=== PATIENT | male | born 1955 | race Caucasian/White ===

== ENCOUNTER 2017-10-12 14:50 | Inpatient (IN) ==
[2017-10-12] MEDS ORDERED: Acetaminophen 325 MG TABLET PO PRN (20:59)
[2017-10-12] MEDS ORDERED: Naloxone 0.4 MG/ML INJ IVP PRN (20:59)
--- NOTE | 2017-10-12 21:34 | Internal Med History&Physical ---
Date of Encounter: 10/12/17 Time of Encounter: 19:30 Internal Medicine - H&P: HPI Chief complaint: Left-sided weakness Admitted From: Home Plans for Post Hospital Care: Home History of present illness: Mr. Lamb is a 62 year old male transferred from [place] emergency room. Patient present to ER for left sided weakness and slurred speech. Patient is generally in good health, no significant past medical history. He is on no home medication. Patient said since Monday (3 days ago) he started to have left arm and left leg weakness, without numbness or pain. Patient also has on and off slurred speech. Patient denies difficulty swallowing, choking or cough on eating. Patient denies headache, shortness of breath, or chest pain. 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 Patient was transferred to our hospital for further management. I have discussed with this patient regarding CODE STATUS, patient clearly told me he does not want resuscitation or intubation, DNR/DNI placed. Past Med Surg Social Fam HX - Past Medical History Medical history: no medical history Psychiatric history: no psych history - Past Surgical History Surgical History: appendectomy - Social History Smoking Status: Former smoker Smokeless Tobacco Status: No Alcohol use: none Drug use: none - Family History Mother History Unknown: Yes Internal Medicine - H&P: Meds No Known Home Drugs 10/12/17 [History] 3 Allergy/AdvReac Type Severity Reaction Status Date / Time bee venom protein (honey bee) Allergy Swelling Verified 10/12/17 11:48 of Lip/Tongue/Throat Silicone AdvReac Mild See Verified 10/12/17 11:47 Comments All Systems PM: A 10-system review of systems was performed and is negative for pertinent findings except as documented above in the HPI. - Constitutional Vitals: Temp Pulse Resp BP Pulse Ox 98.9 F 60 14 113/67 96 10/12/17 17:45 10/12/17 17:47 10/12/17 17:47 10/12/17 17:47 10/12/17 17:47 General appearance: Present: A&O X 3, no acute distress, answers questions appropriately - Head Head exam: Present: atraumatic, normocephalic - Eye Eye exam: Present: PERRL, conjuntiva pink, sclera anicteric Pupils: Present: PERRL - Neck Neck exam general surgery: Present: supple, trachea midline. Absent: lymphadenopathy - Respiratory Respiratory exam: Present: CTAB. Absent: accessory muscle use, rales, rhonchi, wheezes - Cardiovascular Cardiovascular exam: Present: RRR, +S1, +S2. Absent: diastolic murmur, gallop, rubs, systolic murmur - GI/Abdominal GI/Abdominal exam: Present: normal bowel sounds, soft, no peritoneal signs. Absent: distended, tenderness - Extremities Exam Extremities exam: Present: warm, radial pulses palpable and symmetrical. Absent : calf tenderness, cyanotic, pedal edema - Neurological Exam Neurological exam: Present: motor sensory deficit (Left UE/LE motor 5-/5. ), oriented X3, no focal deficits, facial droop (Left-sided facial drop). Absent: CN II-XII intact (Tongue diviate to left side when sticking out.), pronater drift, speech deficit - Skin Skin exam: Present: dry, intact - Assessment and plan (1) DVT prophylaxis Current Visit: Yes Status: Acute Assessment and plan: Heparin subcutaneously (2) CVA (cerebral vascular accident) Current Visit: No Status: Acute Assessment and plan: Patient has left side weakness with slurred speech and left-sided facial drop. CTA shows Pontine infarct. Symptoms started from 3 days ago. Consider ischemic CVA. - Placing patient on continuous cardiac monitoring - Echocardiogram and duplex carotid bilaterally - Neurology consult - [facility] SS protocol - PTOT evaluation - Patient has no problem with swallowing, will place patient on regular diet. - We will start aspirin and atorvastatin. Qualifiers: CVA mechanism: unspecified Qualified Code(s): I63.9 - Cerebral infarction, unspecified (3) Hyperglycemia Current Visit: Yes Status: Acute Assessment and plan: Patient's random glucose level is high in [facility] emergency room (289). Patient denies history of diabetes. Will check hemoglobin A1c in a.m. - Time Spent With Patient Total time spent is greater than 50% in coordination of care (as documented) at patient's floor/unit and/or counseling patient: 40 minutes Greater than 35 minutes
[2017-10-12] MEDS: Aspirin Enteric Coated 81 MG Tablet PO SCH (21:53)
[2017-10-13 05:26] LABS: Basophils # 0.1 K/mcL (0.0-0.2); Basophils % 0.8 %; Eosinophils # 0.3 K/mcL (0.0-0.6); Eosinophils % 3.2 %; Hemoglobin 13.8 g/dL (12.9-16.9); Immature Granulocytes % 0.3 % (0-4); Lymphocytes % 35.2 %; Mean Corpuscular HGB Conc 35.4 g/dL (31.6-35.5); Mean Corpuscular Hemoglobin 31.1 pg (28.0-33.3); Mean Corpuscular Volume 87.8 fL (83.0-100.0); Monocytes # 0.8 K/mcL (0.0-1.3); Monocytes % 9.4 %; Neutrophils # 4.4 K/mcL (1.6-8.9); Platelet Count 206 K/mcL (140-400); Red Blood Count 4.44 M/mcL (4.19-5.50); Red Cell Distribution Width 13.1 % (11.5-14.5); Segmented Neutrophils % 51.1 %
[2017-10-13 05:49] LABS: BUN/Creatinine Ratio 22 (6-26); Blood Urea Nitrogen 14 mg/dL (8-23); Carbon Dioxide 27 mEq/L (23-29); Chloride 103 mEq/L (98-107); Chol/HDL Ratio 6.3 (0-4.9); Cholesterol 170 mg/dL (< 200); Glucose 236 mg/dL (70-105); HDL Cholesterol 27 mg/dL (40-59); LDL Cholesterol,Calculated 89 mg/dL (0-99); Magnesium 1.9 mg/dL (1.6-2.6); Osmolality,Calculated 290 (280-300); Potassium 3.5 mEq/L (3.5-5.1); Sodium 136 mEq/L (136-145); Triglycerides 271 mg/dL (< 150); eGFR For African Americans > 60 (> 60); eGFR For Non-African Americans > 60 (> 60)
[2017-10-13] MEDS: *HR* Heparin 5,000 UNIT/ML VIAL SQ SCH ×2 (06:10→17:49)
[2017-10-13 08:39] LABS: Estimated Average Glucose 269 mg/dl
[2017-10-13] MEDS: Aspirin Enteric Coated 81 MG Tablet PO SCH (08:46)
--- NOTE | 2017-10-13 10:45 | Neurology - Consult Note ---
Date of Encounter: 10/13/17 Time of Encounter: 07:25 Assessment and Plan (1) Left-sided weakness Current Visit: Yes Status: Acute Agent who did not have any significant past medical history admitted with 3 days history of left-sided weakness which is very mild able to ambulate without any problem no other cranial nerve dysfunction were noted on current neurological examination AT facility CT scan of the head shows concern of a pontine infarct. Patient would need a stroke workup including MRI of the brain at the same time suggest to continue him on antiplatelet therapy with aspirin also check his cholesterol may benefit from statin For secondary stroke prevention patient should continue daily antiplatelet medication and vascular risk factor modification. Order the following test, *MRI of the brain without contrast. *Antiplatelet medication, aspirin 325 mg daily. *Consult physical therapy/ though don not think that he need any rehab * To reduce the risk of future ischemic stroke patient need continued vascular risk modification, following's are the recommended guidelines LDL goal less than 70 MG per deciliter Smoking cessation reinforced. Diabetes management Blood pressure control should achieve less than 130/80 mmHg BP management should aim to achieve long-term control in a reasonable amount of time. weight management goal for BMI is 18.5 -24.9 Kg/m2 Alcohol : No more than 2 drinks per day for men Patient to continue to follow-up with his primary care physician for continued outpatient risk factor management and modification. History of Present Illness HPI: Mr. Lamb is a 62 year old male Mr. Lamb is a 62 year old male transferred from [place] emergency room. Patient present to ER for left sided weakness that started about 3 days ago she did not pay much attention to it his symptoms continued so finally he came into the emergency room to be evaluated. He may have some slurred speech but he is not sure about it he denies any headache denies any double vision denies any difficulty with swallowing or any difficulty with a gait and balance. Patient is generally in good health, no significant past medical history. He is on no home medication. patient denies headache, shortness of breath, or chest pain. 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 Patient was transferred to [facility] for further management. Past Med Surg Social Fam HX - Past Medical History Medical history: no medical history Psychiatric history: no psych history - Past Surgical History Surgical History: appendectomy - Social History Smoking Status: Former smoker Smokeless Tobacco Status: No Alcohol use: none Drug use: none - Family History Mother History Unknown: Yes Medications and Allergies No Known Home Drugs 10/12/17 [History] 3 Allergy/AdvReac Type Severity Reaction Status Date / Time bee venom protein (honey bee) Allergy Swelling Verified 10/12/17 11:48 of Lip/Tongue/Throat Silicone AdvReac Mild See Verified 10/12/17 11:47 Comments All Systems: The remainder of the systems were reviewed and are negative Physical Examination - Vital Signs Vital Signs: Initial Vital Signs Temp Pulse Resp BP Pulse Ox 98.9 F 60 14 113/67 96 10/12/17 17:45 10/12/17 17:45 10/12/17 17:45 10/12/17 17:45 10/12/17 17:45 - Exam Exam: GENERAL: Comfortable in no acute distress HEENT: Normal LUNGS: CTA HEART: RRR, S1 S2 Audible, no murmur EXTREMITIES: No Pedal edema. DETAILED NEUROLOGICAL EXAMINATION: MENTAL STATUS: Oriented to person, place, date and situation. Memory: knows the President, Aware of recent events Recent Memory Intact Cranial Nerve Examination: CN - II: Visual Acuity, Field of Vision Normal, Fundus examination: No disk edema, Pupils- size shape reaction to light and accommodation: All normal. CN III, IV, : External ocular movements were intact, Pupils were reactive, Nodrooping of the eyelids CN V: Sensation over the face to light touch and pinprick all normal. Corneal reflexes not tested, jaw jerk normal. CN VII: No facial asymmetry, no flattening of nasolabial folds, no difficulty in closing the eyes, no loss of forehead wrinkles, no difficulty in eye-closure, frowning raising eyebrows. CNVIII: No significant hearing loss CN IX, X: Uvula centralized not deviated, Gag reflex: Not tested CN X1: Sternocleidomastoid, trapezius, normal or evidence of any weakness. CN X11: No Dysarthria, no wasting or fibrilation f tongue muscles, no deviation, tongue muscle strength normal. Motor examination: No hypertrophy, tone was normal, power grade 0-5 Upper limbs Proximal- No difficulty in lifting the arms above the head. Distal- No weakness in distal muscles On formal testing 4/4 on left as compare to right . Lower limbs On formal testing 4/4 on left right 5/5 Coordination: [id number] normal. Target pursuit normal finger tapping normal, Rapid alternating moment of wrist slow on left Sensory system: Superficial sensations- Touch normal. Pain- Pinprick, Temperature all normal, Deep sensation normal, Joint position sense normal. Cortical sensation, Tactile discrimination, localization and extinction all normal. Deep tendon reflexes. Symmetrical bilateral, No evidence of Babinski. No sign of meningeal irritation Gait Examination: normal no defecit Results - Laboratory Findings CBC and BMP: 10/13/17 04:08 10/13/17 04:08 Abnormal lab findings: Abnormal lab results Creatinine 0.64 mg/dL (0.70-1.30) L 10/13/17 04:08 Glucose 236 mg/dL (70-105) H 10/13/17 04:08 Hemoglobin A1c 11.0 % (-5.6) H 10/13/17 04:08 Triglycerides 271 mg/dL (< 150) H 10/13/17 04:08 VLDL Cholesterol, Calc 54 mg/dL (< 31) H 10/13/17 04:08 HDL Cholesterol 27 mg/dL (40-59) L 10/13/17 04:08 Cholesterol/HDL Ratio 6.3 (0-4.9) H 10/13/17 04:08 - Diagnostic Findings Additional findings: CT scan at outside facility shows concern of pontine infarct results are not available at this time Consult Discharge Plan - Plan Referrals: NONE,PCP [Primary Care Provider] -
--- NOTE | 2017-10-13 14:00 | Internal Med Progress Note ---
Date of Encounter: 10/13/17 Time of Encounter: 13:58 - Assessment and plan (1) CVA (cerebral vascular accident) Current Visit: No Status: Inactive Assessment and plan: Patient has left side weakness with slurred speech and left-sided facial drop. CTA shows Pontine infarct. Symptoms started from 3 days ago. Consider ischemic CVA. - Placing patient on continuous cardiac monitoring - Neurology consulted, seen patient today - [facility] SS protocol - PTOT evaluation - no acute needs - Patient has no problem with swallowing, will place patient on regular diet. - We will start aspirin and atorvastatin. 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 Follow-up echocardiogram results - pending Follow-up carotid ultrasound - pending Qualifiers: CVA mechanism: unspecified Qualified Code(s): I63.9 - Cerebral infarction, unspecified (2) Newly diagnosed diabetes Current Visit: Yes Status: Acute Assessment and plan: Patient found to have hyperglycemia and A1C checked which was 11.0% Will discuss with patient and also do diabetic education. (3) DVT prophylaxis Current Visit: Yes Status: Acute Assessment and plan: Heparin subcutaneously - Time Spent With Patient Total time spent is greater than 50% in coordination of care (as documented) at patient's floor/unit and/or counseling patient: - Subjective Interval history: no acute events - Constitutional Vitals: Temp Pulse Resp BP Pulse Ox 98.5 F 58 14 133/72 98 10/13/17 12:20 10/13/17 12:20 10/13/17 12:20 10/13/17 12:20 10/13/17 12:20 General appearance: Present: A&O X 3, no acute distress, answers questions appropriately Internal Medicine: Result - Labs CBC & Chem 7: 10/13/17 04:08 10/13/17 04:08 Labs: Short CBC 10/13/17 Range/Units 04:08 WBC 8.6 (4.3-11.1) K/mcL Hgb 13.8 (12.9-16.9) g/dL Hct 39.0 (37.5-50.1) % Plt Count 206 (140-400) K/mcL Neutrophils # 4.4 (1.6-8.9) K/mcL BMP 10/13/17 04:08 Sodium 136 Potassium 3.5 Chloride 103 Carbon Dioxide 27 BUN 14 Creatinine 0.64 L Glucose 236 H Calcium 9.0 Consult Discharge Plan - Plan Referrals: Jo Ann Clark CNP [Advanced Practice Nurse] - 10/23/17 10:15 am
[2017-10-13] MEDS ORDERED: *HR* Dextrose 50 % in Water (Syg) 50 ML SYRINGE IVP PRN (17:11)
[2017-10-13] MEDS ORDERED: D5% in Water 1,000 ML IVC PRN (17:11)
[2017-10-13] MEDS ORDERED: Dextrose Gel 15 GM/37.5 ML TUBE PO PRN ×2 (17:11)
[2017-10-13] MEDS: Insulin LISPRO 300 UNITS/3 ML VIAL SQ SCH (18:01)
[2017-10-13] MEDS: Insulin DETEMIR 100 UNIT/ML X5UNITS SQ SCH ×2 (21:03→21:05)
[2017-10-14] MEDS: *HR* Heparin 5,000 UNIT/ML VIAL SQ SCH (05:44)
[2017-10-14] MEDS: Aspirin Enteric Coated 81 MG Tablet PO SCH (08:41)
[2017-10-14] MEDS: Insulin LISPRO 300 UNITS/3 ML VIAL SQ SCH ×2 (08:42→13:16)
--- NOTE | 2017-10-14 09:35 | Internal Med Progress Note ---
Date of Encounter: 10/14/17 Time of Encounter: 09:33 - Assessment and plan (1) CVA (cerebral vascular accident) Current Visit: No Status: Inactive Assessment and plan: Patient has left side weakness with slurred speech and left-sided facial drop. CTA shows Pontine infarct. Symptoms started from 3 days ago. Consider ischemic CVA. PTOT evaluated patient and has no acute needs Echo negative for thrombus or PFO. Carotid U/S negative for obstruction or large amount of stenosis. MRI brain showed large acute right kishor infarct and no bleeding or mass Discharge likely today. Pending Neuro recommendations for medication on discharge. Qualifiers: CVA mechanism: unspecified Qualified Code(s): I63.9 - Cerebral infarction, unspecified (2) Newly diagnosed diabetes Current Visit: Yes Status: Acute Assessment and plan: Patient found to have hyperglycemia and A1C checked which was 11.0% DM education Started on Levemir 18 units yesterday evening. Glucose unchanged this morning but will monitor throughout today. Will prescribe insulin on discharge. Will need close follow-up with primary care physician. (3) DVT prophylaxis Current Visit: Yes Status: Acute Assessment and plan: Heparin subcutaneously - Time Spent With Patient Total time spent is greater than 50% in coordination of care (as documented) at patient's floor/unit and/or counseling patient: - Subjective Interval history: no acute events Patient states strength already improving and balance improving. - Constitutional Vitals: Temp Pulse Resp BP Pulse Ox 98.8 F 57 15 109/69 96 10/14/17 07:12 10/14/17 07:12 10/14/17 07:12 10/14/17 07:12 10/14/17 07:12 General appearance: Present: A&O X 3, no acute distress, answers questions appropriately Exam: HEENT: Normal. Neuro: CN II-XII grossly in tact, improved since yesterday, Patellar reflex 2+ elyssa. Hand grasp right hand normal, left hand 4+. Left leg 4+ flexion, right leg normal. Sensation in tact. CVS: RRR Lungs: CTAB Ext: no edema, no cyanosis Internal Medicine: Result - Labs CBC & Chem 7: 10/13/17 04:08 10/13/17 04:08 - Impressions Impressions Brain MRI 10/13/17 14:00 IMPRESSION: Acute right kishor infarct. D/ / 10/13/2017 20:30:10 Rosalio Nichols MD / clarence Interpreting Provider: Rosalio Nichols MD Foreign Body Localization X-Ray 10/13/17 14:08 IMPRESSION: No evidence of metallic foreign body within the orbits. D/ / Pawan Sprague MD / Pawan Sprague MD Interpreting Provider: Pawan Sprague MD Echocardiogram 10/13/17 21:02 Impressions: LVEF 60%. Normal LV chamber size, wall thickness and function. Mild left ventricular diastolic dysfunction. Normal right ventricular structure and function. No evidence of pulmonary hypertension. No significant valvular dysfunction. No evidence of PFO with agitated saline contrast. Left Ventricular Wall Motion: Rest Echo Findings All wall segments showed normal motion. Findings: Study Quality * Technically adequate exam. ECG Findings * Normal sinus rhythm. Left Ventricle * LVEF 60%. * Normal LV chamber size, wall thickness and function. * Mild left ventricular diastolic dysfunction. Right Ventricle * Normal right ventricular structure and function. Left Atrium * Mildly dilated left atrium. Right Atrium * Normal right atrial size. Aortic Valve * Trileaflet aortic valve with normal function. * No aortic regurgitation. * No aortic stenosis. Mitral Valve * Normal mitral valve structure and function. * No mitral regurgitation. * No mitral stenosis. Tricuspid Valve * Normal tricuspid valve structure and function. * Trace tricuspid regurgitation. * No evidence of pulmonary hypertension. Pulmonic Valve * Normal pulmonic valve structure and function. * Trace pulmonic regurgitation. Aorta * Normally sized aortic root. Pericardium * The pericardium appears normal. IVC * The IVC is not well evaluated. Pulmonary Artery * Normal visualized portions of the main pulmonary artery. Interatrial Septum * No evidence of PFO with agitated saline contrast. Consult Discharge Plan - Plan Referrals: Jo Ann Clark CNP [Advanced Practice Nurse] - 10/23/17 10:15 am
[2017-10-14 10:02] VITALS: BP 124/73
--- NOTE | 2017-10-14 12:08 | Neurology Progress Note ---
Date of Encounter: 10/14/17 Time of Encounter: 12:05 Assessment and Plan (1) Acute brainstem infarction Current Visit: Yes Status: Acute Patient has suffered an acute infarct involving the right kishor. He was admitted with a glucose of greater than 230 and is likely diabetic. He states that it does run in his family. At this point in time he seems to be stable. He is able to ambulate him does have functional use of her left upper extremity although he does have left sided weakness. I feel that he would benefit from outpatient PT and OT to maximize his recovery. I would recommend aspirin 325 mg daily along with ongoing antihypertensives and lipid lowering agents. He may discharge him at your discretion. I will reevaluate him at your request. Subjective Interval history: The chart was reviewed, the patient was seen and examined. He is laying in bed comfortably without any complaints at this time. Denies headache, he feels that his speech is somewhat slurred however it sounds completely intelligible to me. He has been up walking around his room without balance difficulty or falls. I did review the MRI scan of the brain which does reveal a fairly large right pontine infarct. He denies any difficulty with facial movements or swallowing. He does still have some weakness of the left upper and left lower extremity. He does however maintain functional strength. Echocardiogram has been negative. He has been started on aspirin as well as statin therapy. Upon admission to the hospital his glucose was elevated at 236. The case was discussed with the hospitalist. Objective - Constitutional Vitals: Temp Pulse Resp BP Pulse Ox 98.2 F 60 15 124/73 97 10/14/17 10:01 10/14/17 10:10/14/17 10:10/14/17 10:10/14/17 10:01 - Neurological Exam Additional comments: DETAILED NEUROLOGICAL EXAMINATION: MENTAL STATUS: Oriented to person, place, date and situation. Follows commands and answers questions appropriately. No agnosia, aphasia, or apraxia. Memory: knows the President, Aware of recent events. Judgment and abstract thinking are intact. Recent Memory Intact Cranial Nerve Examination: CN - II: Visual Acuity, Field of Vision Normal, Fundus examination: No disk edema, Pupils- size shape reaction to light and accommodation: All normal. CN III, IV, : External ocular movements were intact, Pupils were reactive, Nodrooping of the eyelids CN V: Sensation over the face to light touch and pinprick all normal. Corneal reflexes not tested, jaw jerk normal. CN VII: No facial asymmetry, no flattening of nasolabial folds, no difficulty in closing the eyes, no loss of forehead wrinkles, no difficulty in eye-closure, frowning raising eyebrows. CNVIII: No significant hearing loss CN IX, X: Uvula centralized not deviated, Gag reflex: Not tested CN X1: Sternocleidomastoid, trapezius, normal or evidence of any weakness. CN X11: No Dysarthria, no wasting or fibrilation f tongue muscles, no deviation, tongue muscle strength normal. Motor examination: Normal strength bulk and tone of the right upper and right lower extremity. Left deltoid strength 3/5, left biceps strength 4/5, left triceps strength 4/5. Left lower extremity strength is 4/5 of all muscles. No involuntary movements or atrophy are identified. Coordination: [id number] normal. Target pursuit normal finger tapping normal, Rapid alternating moment of wrist slow on left Sensory system: Superficial sensations- Touch normal. Pain- Pinprick, Temperature all normal, Deep sensation normal, Joint position sense normal. Cortical sensation, Tactile discrimination, localization and extinction all normal. Deep tendon reflexes. Symmetrical bilateral, No evidence of Babinski. No sign of meningeal irritation Gait Examination: normal no defecit Results - Laboratory Findings CBC and BMP: 10/13/17 04:08 10/13/17 04:08 Abnormal lab findings: Abnormal lab results Creatinine 0.64 mg/dL (0.70-1.30) L 10/13/17 04:08 Glucose 236 mg/dL (70-105) H 10/13/17 04:08 POC Glucose 246 mg/dL (70-99) H 10/14/17 11:13 Hemoglobin A1c 11.0 % (-5.6) H 10/13/17 04:08 Triglycerides 271 mg/dL (< 150) H 10/13/17 04:08 VLDL Cholesterol, Calc 54 mg/dL (< 31) H 10/13/17 04:08 HDL Cholesterol 27 mg/dL (40-59) L 10/13/17 04:08 Cholesterol/HDL Ratio 6.3 (0-4.9) H 10/13/17 04:08 Consult Discharge Plan - Plan Referrals: Jo Ann Clark CNP [Advanced Practice Nurse] - 10/23/17 10:15 am
--- NOTE | 2017-10-14 13:04 | Discharge Summary ---
- NOTES TO OUTPATIENT PROVIDER Notes to Outpatient Provider: - Patient would benefit from OT rehab. - Started on Insulin had glucose in high 200s-300s, with A1C 11%, provided some diabetes education but needs close follow-up and likely insulin adjustment. Date of Encounter: 10/14/17 Time of Encounter: 13:02 - Discharge Diagnosis (1) CVA (cerebral vascular accident) Priority: Primary Status: Inactive Qualifiers: CVA mechanism: unspecified Qualified Code(s): I63.9 - Cerebral infarction, unspecified (2) Newly diagnosed diabetes Priority: Secondary Status: Acute (3) DVT prophylaxis Priority: Secondary Status: Acute Hospital course: Mr. Lamb is a 62 year old male with no known history presented from [facility] because of left sided weakness and slurred speech. Symptoms were 3 days prior to admission. A CT of head showed pontine infarct and he was trasnferred to [facility] for further management. Patient was admitted on telemetry floor with neurochecks Q4H, an echocardiogram was done showing no thrombi, carotid ultrasound showed some stenosis, but not obstructing. PT/OT evaluated patient and he had no acute needs. Neurology was consulted and patient recommended to be on aspirin 325 mg daily and lipitor. An MRI confirmed a large pointine infarct without any bleeding or mass. He had elevated glucose in hospital and an A1C was 11.0%. As undiagosed diabetic, he was given some education and started on Levemir HS and Humalog TID WM. Patient glucose remained in high 200s. This seems to be his baseline. Of note, most recent glucose prior to discharge was in 300s but patient had meal prior to checking glucose. Patients neurological function had significant improvement, near all function returned with some residual left sided weakness. He was discharged home in stable condition. His daughter is [employer] and she will be assisting with education and administration of insulin and glucose checks. Suggested to have close follow-up with primary care physician. - Time Spent with Patient Total time spent providing and/or coordinating discharge services: - Discharge Medications Prescriptions: Aspirin/Calcium Carbonate/Mag [Aspirin Buffered 325 mg Tab] 325 mg PO DAILY #30 tablet Atorvastatin [Lipitor] 40 mg PO HS #30 tablet Insulin DETEMIR [Levemir] 25 unit SQ HS #8 mls Insulin LISPRO [Humalog] 5 unit SQ TIDWM #450 mls Home Medications: Aspirin/Calcium Carbonate/Mag [Aspirin Buffered 325 mg Tab] 325 mg PO DAILY #30 tablet 10/14/17 [Rx] Atorvastatin [Lipitor] 40 mg PO HS #30 tablet 10/14/17 [Rx] Insulin DETEMIR [Levemir] 25 unit SQ HS #8 mls 10/14/17 [Rx] Insulin LISPRO [Humalog] 5 unit SQ TIDWM #450 mls 10/14/17 [Rx] Allergies/Adverse Reactions: 3 Allergy/AdvReac Type Severity Reaction Status Date / Time bee venom protein (honey bee) Allergy Swelling Verified 10/12/17 11:48 of Lip/Tongue/Throat Silicone AdvReac Mild See Verified 10/12/17 11:47 Comments Date of admission: 10/12/17 20:59 Primary care physician: PCP NONE Consults: 10/12/17 18:05 Consult to Nutrition [CONS] Routine Comment: Consulting Provider: NUTRITION Reason for Dietary Consult: MST Score 10/12/17 21:01 Consult to Neurology [CONS] Routine Consulting Provider: [facility] Reason for Consult: CVA Call Completed: No Consult to Physical Therapy [CONS] Routine Comment: Evaluate, develop and implement POC Reason for Consult: CVA Does patient have active BEDREST order?: No Is patient medically & hemodynamically stable?: Yes 10/13/17 16:30 Consult to Diabetes Education [CONS] Routine Comment: Reason for Consult: newly diagnosed Discharging clinician: Carmencita Nichols - Constitutional Vitals: Temp Pulse Resp BP Pulse Ox 98.2 F 60 15 124/73 97 10/14/17 10:01 10/14/17 10:01 10/14/17 10:01 10/14/17 10:01 10/14/17 10:01 General appearance: Present: A&O X 3, no acute distress, answers questions appropriately - Head Head exam: Present: atraumatic, normocephalic - Eye Eye exam: Present: PERRL, conjuntiva pink, sclera anicteric Pupils: Present: PERRL - Neck Neck exam general surgery: Present: supple, trachea midline. Absent: lymphadenopathy - Respiratory Respiratory exam: Present: CTAB. Absent: accessory muscle use, rales, rhonchi, wheezes - Cardiovascular Cardiovascular exam: Present: RRR, +S1, +S2. Absent: diastolic murmur, gallop, rubs, systolic murmur - GI/Abdominal GI/Abdominal exam: Present: normal bowel sounds, soft, no peritoneal signs. Absent: distended, tenderness - Extremities Exam Extremities exam: Present: warm, radial pulses palpable and symmetrical. Absent : calf tenderness, cyanotic, pedal edema - Neurological Exam Neurological exam: Present: CN II-XII intact, oriented X3, no focal deficits. Absent: pronater drift, facial droop, speech deficit - Skin Skin exam: Present: dry, intact - Patient Status Disposition: Home, Self-Care Condition: Good Functional capacity at discharge: independent ambulation Overall status at discharge: patient is progressing back to baseline - Discharge Instructions Follow Up With: Jo Ann Clark CNP [Advanced Practice Nurse] - 10/23/17 10:15 am - Diet and Activity Activity: as per physical therapy Diet: diabetic diet
== END 2017-10-14 14:29 | disposition home or self-care (01) | DRG 65 ==
LOC: 3ANU
PROVIDERS: ADMIT Hospitalist; ATTEND Hospitalist